=== PATIENT | female | born 1970 ===

== ENCOUNTER → 2022-04-15 18:45 | Outpatient (CLI) | payer OTHER, SELFPAY ==
[2022-04-15 19:37] LABS: COVID19 -Nasal RAPID Negative (Negative)
== END ==
PROVIDERS: PCP Nurse Practitioner Family; Visit Provider Student in an Organized Health Care Education/Training Program
DX: Z20.822 Contact with and (suspected) exposure to COVID-19 (principal)
CPT/HCPCS: 87635

== ENCOUNTER 2023-02-03 08:33 | Emergency (ER) | payer OTHER, SELFPAY ==
[2023-02-03 08:36] VITALS: BP 128/85; PULSE 72; RESP 18; TEMP 36.2; O2SAT 98; BMI 24.9
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
--- NOTE | 2023-02-03 09:36 | DI.MRI.S_ITS ---
PROCEDURE: MR CERVICAL SPINE WO CON INDICATIONS: neck pain, flex/ext painful TECHNIQUE: Noncontrast sagittal T1 spin echo and T2 fast spin echo, sagittal STIR, foraminal oblique sagittal T2 fast spin echo, and axial gradient echo or T2 fast spin echo through the cervical spine. COMPARISON: [facility], CT, CT CERVICAL SPINE WO CON, 02/03/2023, 9:10. [facility], MR, C-SPINE WITHOUT CONTRAST, 03/01/2017, 15:02. FINDINGS: Image quality: Degraded by motion artifact. Alignment and Curvature: There is loss of normal cervical lordosis. 2 mm of retrolisthesis of C2 on C3, C3 on C4, and C5 on C6. Bone Marrow: Marrow demonstrates normal overall signal. Mild reactive signal throughout the endplates of the cervical spine. Spinal Cord: Visualized spinal cord has normal size and signal. No cerebellar tonsillar herniation. Paraspinous Soft Tissues: No paravertebral masses. Prevertebral soft tissues are normal in thickness. There is a 10 mm right submental lymph node. C2-C3: Mild disc desiccation and diffuse disc bulge. Mild facet and uncovertebral hypertrophy. Mild canal stenosis. No foraminal stenosis. No significant change. C3-C4: Mild disc desiccation and diffuse disc bulge. Mild facet and uncovertebral hypertrophy bilaterally. Mild canal stenosis. Severe left and moderate to severe right foraminal stenosis. Left greater than right C4 nerve root compression. No significant change. C4-C5: Mild disc desiccation and diffuse disc bulge with small superimposed central protrusion. Mild facet and uncovertebral hypertrophy bilaterally. Mild canal stenosis. Moderate bilateral foraminal stenosis. No significant change. C5-C6: Moderate disc height loss and desiccation. Mild diffuse disc bulge with superimposed right posterolateral protrusion/osteophyte. Mild facet and uncovertebral hypertrophy bilaterally. Moderate to severe canal stenosis. Mild right cord flattening. Severe right and moderate left foraminal stenosis. Right C6 nerve root compression. No significant change. C6-C7: Moderate disc height loss and desiccation. Mild diffuse disc bulge. Mild facet and uncovertebral hypertrophy bilaterally. Mild canal stenosis. Severe left and mild right foraminal stenosis. Left C7 nerve root compression. No significant change. C7-T1: Mild disc height loss and desiccation. No significant canal nor foraminal stenosis. No significant change. IMPRESSION: 1. Multilevel degenerative disc and facet disease, as well as uncovertebral hypertrophy. 2. Multilevel canal stenoses, worst at C5-C6 where there is mild cord flattening. 3. Multilevel foraminal stenoses, worst at C3-C4, C5-C6, and C6-C7, where there is associated intraforaminal nerve root compression. Recommend correlation with clinical symptoms to ascertain relevance of these findings. 4. 10 mm right submental lymph node, which could indicate reactive adenopathy, metastatic disease, or lymphoma. Dictated by: Luc Meek M.D. on 02/03/2023 at 10:47 Approved by: Luc Meek M.D. on 02/03/2023 at 10:53
[2023-02-03 11:06] VITALS: BP 102/72; PULSE 71; RESP 16; O2SAT 99
[2023-02-03 11:54] VITALS: BP 132/76; PULSE 73; RESP 19; O2SAT 97
== END 2023-02-03 11:55 | disposition home or self-care (01) ==
PROVIDERS: Emergency Provider Emergency Medicine; PCP Nurse Practitioner Family
DX: M50.30 Other cervical disc degeneration, unspecified cervical region (principal); R11.0 Nausea; W22.8XXA Striking against or struck by other objects, initial encounter
CPT/HCPCS: 70450; 72125; 72141; 99284